=== PATIENT | female | born 1940 | race Caucasian/White ===

== ENCOUNTER 2022-01-14 15:56 | Outpatient (RCR) | payer MEDICARE, OTHER, SELFPAY ==
[2022-01-07] MEDS: HEPARIN 500 UNIT/5 ML SYRINGE IVF (12:14)
[2022-01-07] MEDS: SODIUM CHLORIDE 0.9 % (FLUSH) 10 ML SYRINGE IVF (12:15)
[2022-01-07 12:23] LABS: Basophils Absolute Auto 0.02 K/uL (0.00-0.30); Basophils Percent Auto 0.3 % (0.0-3.0); Eosinophils Absolute Auto 0.06 K/uL (0.00-0.50); Eosinophils Percent Auto 0.9 % (0.0-7.0); Hematocrit 38.1 % (33.0-51.0); Hemoglobin* 12.1 gm/dL (12.0-16.0); Immature Granulocytes Abs Auto 0.01 K/uL (0.00-0.30); Lymphocytes Percent Auto 17.4 % (20-44); Mean Corpuscular HGB Conc 32 gm/dL (32-36); Mean Corpuscular Hemoglobin 30 pg (26-34); Mean Corpuscular Volume 95 fL (80-100); Monocytes Percent Auto 6.1 % (0.0-11.0); Neutrophils Percent Auto 75.2 % (42.0-72.0); Platelet Count* 207 K/uL (140-440); RDW Coefficient of Variation % 14.1 % (11.5-15.5); Red Blood Count 4.01 m/uL (4.00-5.20); White Blood Count* 6.77 K/uL (4.50-11.00)
[2022-01-07 12:47] LABS: Slide Review Reflex No
[2022-01-07 13:21] LABS: Albumin* 3.7 g/dL (3.3-5.0); Chloride* 99 mmol/L (96-114); Potassium* 3.7 mmol/L (3.6-5.1); Sodium* 134 mmol/L (135-149)
[2022-01-07 13:23] LABS: Estimated Glomerular Filt Rate 57 ml/min
[2022-01-07 13:24] LABS: Alanine Aminotransferase* 37 U/L (4-35); Alkaline Phosphatase* 289 U/L (40-150); Aspartate Amino Transferase* 63 U/L (12-35); Bilirubin Total* 0.9 mg/dL (0.1-1.5); Blood Urea Nitrogen* 23 mg/dL (7-30); Calcium* 8.8 mg/dL (8.4-10.6); Carbon Dioxide* 29 mmol/L (20-32); Glucose* 255 mg/dL (60-115); Total Protein* 6.1 g/dL (6.0-8.3)
[2022-01-14 16:21] LABS: Basophils Absolute Auto 0.01 K/uL (0.00-0.30); Basophils Percent Auto 0.2 % (0.0-3.0); Eosinophils Absolute Auto 0.08 K/uL (0.00-0.50); Eosinophils Percent Auto 1.5 % (0.0-7.0); Hematocrit 36.2 % (33.0-51.0); Hemoglobin* 11.6 gm/dL (12.0-16.0); Immature Granulocytes Abs Auto 0.01 K/uL (0.00-0.30); Lymphocytes Percent Auto 11.2 % (20-44); Mean Corpuscular HGB Conc 32 gm/dL (32-36); Mean Corpuscular Hemoglobin 31 pg (26-34); Mean Corpuscular Volume 96 fL (80-100); Monocytes Percent Auto 7.6 % (0.0-11.0); Neutrophils Percent Auto 79.3 % (42.0-72.0); Platelet Count* 186 K/uL (140-440); RDW Coefficient of Variation % 13.9 % (11.5-15.5); Red Blood Count 3.78 m/uL (4.00-5.20); White Blood Count* 5.43 K/uL (4.50-11.00)
[2022-01-14 16:28] LABS: Slide Review Reflex No
[2022-01-14 16:42] LABS: Albumin* 3.7 g/dL (3.3-5.0); Chloride* 98 mmol/L (96-114); Potassium* 3.7 mmol/L (3.6-5.1); Sodium* 134 mmol/L (135-149)
[2022-01-14 16:45] LABS: Alanine Aminotransferase* 23 U/L (4-35); Alkaline Phosphatase* 204 U/L (40-150); Aspartate Amino Transferase* 33 U/L (12-35); Bilirubin Total* 0.4 mg/dL (0.1-1.5); Blood Urea Nitrogen* 27 mg/dL (7-30); Carbon Dioxide* 30 mmol/L (20-32); Creatinine* 1.2 mg/dL (0.5-1.5); Estimated Glomerular Filt Rate 45 ml/min; Glucose* 190 mg/dL (60-115); Total Protein* 6.5 g/dL (6.0-8.3)
[2022-01-14 16:46] LABS: Calcium* 8.5 mg/dL (8.4-10.6)
== END 2022-01-20 23:59 | disposition home or self-care (01) ==
LOC: CCIC 15:56
PROVIDERS: Visit Provider Clinical Nurse Specialist
DX: C25.0 Malignant neoplasm of head of pancreas (principal)
CPT/HCPCS: 36415; 36591; 80053; 85025; J1642

== ENCOUNTER 2022-01-21 16:17 | Outpatient (RCR) | payer MEDICARE, OTHER, SELFPAY ==
[2022-01-21 16:31] LABS: Basophils Absolute Auto 0.01 K/uL (0.00-0.30); Basophils Percent Auto 0.2 % (0.0-3.0); Eosinophils Absolute Auto 0.13 K/uL (0.00-0.50); Eosinophils Percent Auto 2.5 % (0.0-7.0); Hematocrit 34.9 % (33.0-51.0); Hemoglobin* 11.3 gm/dL (12.0-16.0); Immature Granulocytes Abs Auto 0.02 K/uL (0.00-0.30); Mean Corpuscular HGB Conc 32 gm/dL (32-36); Mean Corpuscular Hemoglobin 31 pg (26-34); Mean Corpuscular Volume 96 fL (80-100); Monocytes Percent Auto 8.2 % (0.0-11.0); Neutrophils Percent Auto 79.7 % (42.0-72.0); Platelet Count* 168 K/uL (140-440); RDW Coefficient of Variation % 14.5 % (11.5-15.5); Red Blood Count 3.65 m/uL (4.00-5.20); White Blood Count* 5.12 K/uL (4.50-11.00)
[2022-01-21] MEDS: HEPARIN 500 UNIT/5 ML SYRINGE IVF (16:33)
[2022-01-21 16:34] LABS: Slide Review Reflex No
[2022-01-21] MEDS: SODIUM CHLORIDE 0.9 % (FLUSH) 10 ML SYRINGE IVF (16:34)
[2022-01-21 16:46] LABS: Albumin* 3.8 g/dL (3.3-5.0); Chloride* 101 mmol/L (96-114); Potassium* 3.8 mmol/L (3.6-5.1); Sodium* 134 mmol/L (135-149)
[2022-01-21 16:48] LABS: Creatinine* 1.1 mg/dL (0.5-1.5); Estimated Glomerular Filt Rate 50 ml/min
[2022-01-21 16:49] LABS: Alanine Aminotransferase* 19 U/L (4-35); Alkaline Phosphatase* 158 U/L (40-150); Aspartate Amino Transferase* 28 U/L (12-35); Bilirubin Total* 0.4 mg/dL (0.1-1.5); Blood Urea Nitrogen* 27 mg/dL (7-30); Carbon Dioxide* 27 mmol/L (20-32); Glucose* 134 mg/dL (60-115); Total Protein* 6.5 g/dL (6.0-8.3)
[2022-01-21 16:50] LABS: Calcium* 8.8 mg/dL (8.4-10.6)
--- NOTE | 2022-01-22 10:53 | ONC.NURNOTE ---
L[facility] fax[facility] [employer] # [phone].
== END 2022-07-20 23:59 | disposition home or self-care (01) ==
LOC: CCIC 16:17
PROVIDERS: Visit Provider Clinical Nurse Specialist
DX: C25.0 Malignant neoplasm of head of pancreas (principal)
CPT/HCPCS: 36415; 36591; 80053; 85025; J1642